=== PATIENT | male | born 1985 | race Caucasian/White ===

== ENCOUNTER 2016-11-24 00:34 | Emergency (ER) | payer SELFPAY ==
[2016-11-24 00:43] VITALS: BP 143/87; PULSE 71; RESP 18; TEMP 97.7; O2SAT 100
--- NOTE | 2016-11-24 02:19 | C.PDOC ---
History Of Present Illness 31 year old patient presents to the ED requesting a drug screen. Patient reports he was sent here by his work place. He denies any medical complaints at this time. Time Seen by Provider: 11/24/16 00:48 Chief Complaint (Nursing): Medical Clearance History Per: Patient History/Exam Limitations: no limitations Onset/Duration Of Symptoms: Other Severity: None Pain Scale Rating Of: 0 Recent travel outside of the [place]: No Past Medical History Reviewed: Historical Data, Nursing Documentation, Vital Signs Vital Signs: Last Vital Signs Temp 97.7 F 11/24/16 00:41 Pulse 71 11/24/16 00:41 Resp 18 11/24/16 00:41 BP 143/87 11/24/16 00:41 Pulse Ox 100 11/24/16 04:48 Family History: States: Unknown Family Hx - Social History Hx Alcohol Use: Yes Hx Substance Use: Yes - Immunization History Hx Tetanus Toxoid Vaccination: Yes Hx Influenza Vaccination: No Hx Pneumococcal Vaccination: No Review Of Systems Except As Marked, All Systems Reviewed And Found Negative. Constitutional: Negative for: Fever Cardiovascular: Negative for: Chest Pain Respiratory: Negative for: Shortness of Breath Gastrointestinal: Negative for: Vomiting Physical Exam - Physical Exam Appears: Non-toxic, No Acute Distress Skin: Warm, Dry Head: Atraumatic, Normacephalic Eye(s): bilateral: PERRL, EOMI Neck: Normal ROM, Supple Chest: Symmetrical Cardiovascular: Rhythm Regular Respiratory: No Accessory Muscle Use Extremity: Normal ROM ED Course And Treatment O2 Sat by Pulse Oximetry: 100 (RA) Pulse Ox Interpretation: Normal Progress Note: Plan: Drug screen. -Reassess and disposition. Patient was notified of results. Patient is discharged with a copy of the test. Disposition Counseled Patient/Family Regarding: Diagnosis, Need For Followup, Rx Given - Disposition Disposition: HOME/ ROUTINE Disposition Time: 02:17 Condition: GOOD Additional Instructions: Please follow up with pMD Return to ER if worse Instructions: Normal Exam (ED) - Clinical Impression Clinical Impression: Encounter for employment-related drug testing - PA / COUNCILMAN / Resident Statement MD/DO has reviewed & agrees with the documentation as recorded. - Scribe Statement The provider has reviewed the documentation as recorded by the Scribe Milly Silveira All medical record entries made by the Scribe were at my direction and personally dictated by me. I have reviewed the chart and agree that the record accurately reflects my personal performance of the history, physical exam, medical decision making, and the department course for this patient. I have also personally directed, reviewed, and agree with the discharge instructions and disposition.
== END 2016-11-24 02:26 | disposition home or self-care (01) ==
LOC: C.ER 00:34
DX: Z04.8 Encounter for examination and observation for other specified reasons (principal)
CPT/HCPCS: 99282; G0480